=== PATIENT | male | born 1990 | race Caucasian/White ===

== ENCOUNTER 2016-05-01 02:11 | Inpatient (IN) | payer SELFPAY ==
[~2016-05-01] VITALS: Ht 175.3 cm; Wt 93.5 kg
[~2016-05-01 02:11] MED LIST: AUG875 PO
--- NOTE | 2016-05-01 03:34 | ERD ---
ER Documentation Chief Complaint Date/Time DATE: 05/01/16 TIME: 03:32 Chief Complaint mid epigastric ap, n/v started 11pm last night, denies diarrhea HPI 25-year-old male presents here in emergency department complains of epigastric pain and vomiting started last night. Patient described the pain as sharp pain, 6/10 scale, complaining with vomiting. Patient denies any diarrhea or constipation. Patient denies any fever or chills. Patient states the pain is worse after eating. ROS All systems reviewed and are negative except as per history of present illness. Medications Home Meds Active Scripts Ondansetron (Ondansetron Odt) 4 Mg Tab.rapdis, 4 MG PO Q8 Y for NAUSEA AND/OR VOMITING, #30 TAB Prov:ILAN BENNETT SLUBBER TENDER 05/01/16 Hydrocodone/Acetaminophen (Raritan 5-325 Tablet) 1 Each Tablet, 1 TAB PO Q6H Y for PAIN, #20 TAB Prov:ILAN BENNETT NP 05/01/16 Amoxicillin-Clavulanate K* (Augmentin*) 875 Mg Tab, 875 MG PO BID for 10 Days, TAB Prov:MIKY HWANG MD 12/22/14 Allergies Allergies: Coded Allergies: No Known Allergy (Unverified , 12/27/12) PMhx/Soc Medical and Surgical Hx: pt denies Medical Hx, pt denies Surgical Hx History of Surgery: No Anesthesia Reaction: No Hx Neurological Disorder: No Hx Respiratory Disorders: Yes (Pneumonia) Hx Cardiac Disorders: No Hx Psychiatric Problems: No Hx Miscellaneous Medical Probl: No Hx Alcohol Use: No Hx Substance Use: No Hx Tobacco Use: No Smoking Status: Never smoker FmHx Family History: No coronary disease, No diabetes, No other Physical Exam Vitals Vital Signs Date Time Temp Pulse Resp B/P Pulse Ox O2 Delivery O2 Flow Rate FiO2 05/01/16 02:27 98.3 72 20 153/89 99 Physical Exam GENERAL: The patient is well developed and appropriate for usual state of health, in no apparent distress. CHEST: Clear to auscultation bilaterally. There are no rales, wheezes or rhonchi. HEART: Regular rate and rhythm. No murmurs, clicks, rubs or gallops. No S3 or S4. ABDOMEN: Soft, nontender and nondistended. Good bowel sounds. No rebound or guarding. No gross peritonitis. No gross organomegaly or masses. No Nobles sign or McBurney point tenderness. BACK: No midline or flank tenderness. EXTREMITIES: Equal pulses bilaterally. There is no peripheral clubbing, cyanosis or edema. No focal swelling or erythema. Full range of motion. Grossly neurovascularly intact. NEURO: Alert and oriented. Cranial nerves 2-12 intact. Motor strength in all 4 extremities with 5/5 strength. Sensation grossly intact. Normal speech and gait. SKIN: There is no apparent rash or petechia. The skin is warm and dry. HEMATOLOGIC AND LYMPHATIC: There is no evidence of excessive bruising or lymphedema. No gross cervical, axillary, or inguinal lymphadenopathy. Result Diagram: 05/01/16 0428 05/01/168 Results 24 hrs Laboratory Tests Test 05/01/16 04:28 05/01/16 05:52 Alanine Aminotransferase (ALT/SGPT) 34IU/L Albumin 5.3g/dl Albumin/Globulin Ratio 1.08 Alkaline Phosphatase 92IU/L Anion Gap 23 Aspartate Amino Transf (AST/SGOT) 36IU/L Basophils # Pending Basophils % Pending Blood Morphology Comment Blood Urea Nitrogen 10mg/dl Calcium Level 10.1mg/dl Carbon Dioxide Level 26mmol/L Chloride Level 102mmol/L Creatinine 0.61mg/dl Direct Bilirubin 0.00mg/dl Eosinophils # Pending Eosinophils % Pending Globulin 4.90g/dl Glucose Level 89mg/dl Hematocrit 51.0% Hemoglobin 17.4g/dl Indirect Bilirubin 0.6mg/dl Lipase 65U/L Lymphocytes # Pending Lymphocytes % Pending Mean Corpuscular Hemoglobin 28.1pg Mean Corpuscular Hemoglobin Concent 34.1g/dl Mean Corpuscular Volume 82.3fl Mean Platelet Volume 8.2fl Monocytes # Pending Monocytes % Pending Neutrophils # Pending Neutrophils % Pending Nucleated Red Blood Cells # Pending Nucleated Red Blood Cells % Pending Platelet Count 62587^3/UL Potassium Level 5.1mmol/L Red Blood Count 6.2010^6/ul Red Cell Distribution Width 13.5% Sodium Level 146mmol/L Total Bilirubin 0.6mg/dl Total Protein 10.2g/dl White Blood Count 22.410^3/ul Bedside Urine Blood Negative Bedside Urine Glucose (UA) Negative Bedside Urine Ketones (LAB) Negative Bedside Urine Leukocyte Esterase (L Negative Bedside Urine Nitrite (LAB) Negative Bedside Urine Protein (LAB) Negative Bedside Urine pH (LAB) 7.0 Current Medications Medications (Trade) Dose Ordered Sig/Sommer Route PRN Reason Start Time Stop Time Status Last Admin Dose Admin Ondansetron HCl (Zofran Odt) 4 mg ONCE ONCE ODT 05/01/16 03:42 05/01/16 03:43 DC Ondansetron HCl 4 mg 4 mg ONCE STAT IV 05/01/16 04:29 05/01/16 04:30 DC 05/01/16 04:35 Sodium Chloride (NS) 1,000 ml @ 1,000 mls/hr Q1H ONCE IV 05/01/16 04:30 05/01/16 05:29 DC 05/01/16 04:35 Patient was given Zofran here in the emergency department. After treatment, patient was able to tolerate po fluids here in the emergency department without any vomiting. There is no signs and symptoms of dehydration. PROCEDURE: US, abdomen. CLINICAL INDICATION: Abdomen pain. TECHNIQUE: Multiple real time longitudinal and transverse images were acquired of the patient's abdomen, utilizing a curved array transducer. COMPARISON: None available. FINDINGS: The left lobe of the liver is not well seen due to overlying bowel gas. The liver is normal in size and echogenicity without focal mass or intrahepatic biliary dilatation. The spleen is not well seen. There are multiple stones in the distended gallbladder with thickened gallbladder wall. There is no pericholecystic fluid. The extrahepatic bile ducts are not dilated, measuring up to 3.3 mm in maximum diameter. The pancreas is not well seen due to overlying bowel gas. No free fluid in the abdomen. The right kidney measures 10.2 cm in length. The left kidney was not scanned.. The echogenicity of the renal parenchyma is within normal. No renal stones or hydronephrosis or renal mass seen. IMPRESSION: 1. Multiple stones in the distended gallbladder with thickened gallbladder wall. Findings are suggestive of acute cholecystitis. Recommend clinical correlation. If needed, recommend HIDA scan for further evaluation. 2. The pancreas, spleen and left lobe of liver are not well seen due to overlying bowel gas. Recommend CT abdomen for further evaluation. RPTAT: GG .Chente Caballero MD, Date Time Electronically viewed and signed by .Chente Caballero MD, MD on 05/01/2016 05:54 .Y/ CC: ILAN BENNETT NP Procedures/MDM Medical Decision Making: Patient symptoms was likely consistent with acute cholecystitis is seen in the ultrasound. Patient will be admitted to the hospital, possible further evaluation surgical evaluation. Dr. Sandy, attending physician was informed about this patient, patient will be admitted to the hospital. Departure Diagnosis: Primary Impression: Cholecystitis Condition: Fair ILAN BENNETT NP May 01, 2016 03:34
[2016-05-01] MEDS ORDERED: ONDANSETRON (ODT) 4 MG TAB ODT ONE (03:42)
[2016-05-01] MEDS ORDERED: ONDANSETRON 4 MG INJ IV STA (04:29)
[2016-05-01] MEDS ORDERED: SOD CHLORIDE 0.9% 1,000 ML IV ONE ×2 (04:30→06:30)
[2016-05-01 04:38] LABS: EOSINOPHILS % 0.2 % (0.0-7.0); HEMOGLOBIN 17.4 g/dl (14.0-18.0); MONOCYTE # 0.4 10^3/ul (0.3-0.9); RED CELL DISTRIBUTION WIDTH 13.5 % (11.5-14.5)
[2016-05-01 04:46] LABS: ALBUMIN 5.3 g/dl (3.3-4.9)
[2016-05-01 04:47] LABS: POTASSIUM 5.1 mmol/L (3.5-5.1)
[2016-05-01 04:49] LABS: ALBUMIN/GLOBULIN RATIO 1.08; BILIRUBIN,INDIRECT 0.6 mg/dl (0-1.1); BILIRUBIN,TOTAL 0.6 mg/dl (0.2-1.3); CREATININE 0.61 mg/dl (0.61-1.24); TOTAL PROTEIN 10.2 g/dl (6.1-8.1)
[2016-05-01 04:50] LABS: CALCIUM 10.1 mg/dl (8.4-10.2)
[2016-05-01 04:53] LABS: BASOPHIL # 0.1 10^3/ul (0.0-0.1); BASOPHILS % 0.2 % (0.0-2.0); LYMPHOCYTES # 1.4 10^3/ul (0.8-2.9); LYMPHOCYTES % 6.1 % (15.0-51.0); MEAN CORPUSCULAR HEMOGLOBIN 28.1 pg (29.0-33.0); MEAN CORPUSCULAR HGB CONC 34.1 g/dl (32.0-37.0); MEAN CORPUSCULAR VOLUME 82.3 fl (82.0-101.0); MEAN PLATELET VOLUME 8.2 fl (7.4-10.4); MONOCYTES % 1.7 % (0.0-11.0); NEUTROPHIL # 20.6 10^3/ul (1.6-7.5); NEUTROPHILS % 91.8 % (39.0-77.0); PLATELET COUNT 333 10^3/UL (140-440); UNCORRECTED WBC 22.4 10^3/ul (4.8-10.8); WHITE BLOOD COUNT 22.4 10^3/ul (4.8-10.8)
[2016-05-01 05:37] LABS: SUSPECT 1
[2016-05-01 05:38] LABS: CONDITION 1; LH ANALYZER COMMENTS 1
[2016-05-01] MEDS ORDERED: HYDR-906 PO (05:49)
[2016-05-01] MEDS ORDERED: ONDA4TAB14 PO (05:49)
[2016-05-01 05:52] LABS: URINE BLOOD (Dip) POC Negative (NEGATIVE)
--- NOTE | 2016-05-01 05:55 | RADRPT ---
PROCEDURE: US, abdomen. CLINICAL INDICATION: Abdomen pain. TECHNIQUE: Multiple real time longitudinal and transverse images were acquired of the patient's ab domen, utilizing a curved array transducer. COMPARISON: None available. FINDINGS: The left lobe of the liver is not well seen due to overlying bowel gas. The liver is normal in size and echogenicity without focal mass or intrahepatic biliary dilatation. The spleen is not well see n. There are multiple stones in the distended gallbladder with thickened gallbladder wall. There is no pericholecystic fluid. The extrahepatic bile ducts are not dilated, measuring up to 3.3 mm in maxi mum diameter. The pancreas is not well seen due to overlying bowel gas. No free fluid in the abdomen. The right kidney measures 10.2 cm in length. The left kidney was not scanned.. The echogenicity o f the renal parenchyma is within normal. No renal stones or hydronephrosis or renal mass seen. IMPRESSION: 1. Multiple stones in the distended gallbladder with thickened gallbladder wall. Findings are sugg estive of acute cholecystitis. Recommend clinical correlation. If needed, recommend HIDA scan for further evaluation. 2. The pancreas, spleen and left lobe of liver are not well seen due to overlying bowel gas. Recom mend CT abdomen for further evaluation. RPTAT: GG .Chente Caballero MD, MD Date Time Electronically viewed and signed by .Chente Caballero MD, on 05/01/2016 05:54 .Y/
[2016-05-01] MEDS ORDERED: metroNIDAZOLE 500 MG/NS (PMX) 100 ML IVPB ONE (06:30)
[2016-05-01] MEDS ORDERED: CEFTRIAXONE 1 GM/50 ML (PMX) 50 ML IVPB ONE (06:30)
[2016-05-01 06:50] LABS: ADD UMIC NO; URINE BILIRUBIN (Dip) NEGATIVE (NEGATIVE); URINE BLOOD (Dip) NEGATIVE (NEGATIVE); URINE COLOR LT. YELLOW (YELLOW); URINE GLUCOSE (Dip) NEGATIVE (NEGATIVE); URINE KETONES (Dip) NEGATIVE (NEGATIVE); URINE LEUKOCYTE ESTERASE (Dip) NEGATIVE (NEGATIVE); URINE NITRITE (Dip) NEGATIVE (NEGATIVE); URINE TOTAL PROTEIN (Dip) NEGATIVE (NEGATIVE); URINE UROBILINOGEN (Dip) 0.2 E.U./dL (0.1-1.0)
[2016-05-01] MEDS ORDERED: DOCUSATE SODIUM 100 MG CAP PO PRN (07:00)
[2016-05-01] MEDS ORDERED: morphine 2 MG INJ IV PRN (07:00)
[2016-05-01] MEDS ORDERED: ONDANSETRON 4 MG INJ IV PRN ×2 (07:00)
[2016-05-01] MEDS ORDERED: NACL 0.9% 3 ML SYG IV SCH (07:00)
[2016-05-01] MEDS ORDERED: ACETAMINOPHEN 650 MG SUPP PR PRN (07:00)
[2016-05-01] MEDS ORDERED: ACETAMINOPHEN 325 MG TAB PO PRN (07:00)
--- NOTE | 2016-05-01 07:05 | HP ---
Date/Time of Note Date/Time of Note DATE: 05/01/16 TIME: 06:55 Assessment/Plan VTE Prophylaxis VTE Prophylaxis Intervention: SCD's Assessment/Plan Assessment/Plan 25 yo male with no significant past medical history who presents with acute midepigastric abdominal pain. 1. Abdominal pain 2/2 to acute cholecystitis - will admit the patient to med/ surg, consult Dr. George for possible laparoscopic cholecystectomy, continue with IV antibiotics, obtain an MRCP and possible HIDA scan, zofran, IVF, NPO, pain medications 2. Leukocytosis 2/2 to #1 3. GI ppx - pepcid IV 4. DVT ppx - scds answered all of his questions. as per clinical course. this history and physical took greater then 45 minutes to complete HPI/ROS Admit Date/Time Admit Date/Time 05/01/2016, 6:56 am Hx of Present Illness 25 yo male with no significant past medical history who presents with acute midepigastric abdominal pain. He states that the pain started around 12 am today and has been constant, pressure like, non-radiating, no alleviating factors, took advil with no relief, associated with nausea/vomiting x 2 episodes NBNB. He denies any chest pain, shortness of breath, loss of consciousness, headaches, urinary/bowel irregularities, fevers/chills or other constitutional symptoms. This has never happened before. ED course: zofran , morphine, rocephin/flagyl ROS 14 point review of systems completed, please refer to HPI for any positive findings PMH/Family/Social Past Medical History Medical History: no pertinent history Past Surgical History Past Surgical Hx: no surgical history Family History Significant Family History: no pertinent family hx Social History Alcohol Use: none Smoking Status: Never smoker Drug Use: none Exam/Review of Systems Vital Signs Vitals Vital Signs Date Time Temp Pulse Resp B/P Pulse Ox O2 Delivery O2 Flow Rate FiO2 05/01/16 02:27 98.3 72 20 153/89 99 Exam Exam Gen Breanne: moderate distress 2/2 to abdominal pain, AAOx4 HEENT: NC/AT, PERRLA, EOMI, no pharyngeal erythema, no tonsillar exudates, no lymphadenopathy, no JVD, no carotid bruits NECK: supple, no thyromegaly THORAX: symmetrical, no obvious deformities CV: S1S2, RRR, no M/G/R Lungs: CTAB no W/C/R/R Abd: soft, NT/ND, +BS, no rebound, no guarding, neg HSM, negative goldsmith's sign EXT: no edema, no ecchymosis, no clubbing, FROM Neuro: CN II-XII grossly intact, no focal deficits Psych: good mentation, alert and oriented, good mood and affect Skin: C/D/I Labs Result Diagram: 05/01/1642705/01/16427 Medications Medications Current Medications Sodium Chloride 1,000 ml @ 1,000 mls/hr Q1H ONCE IV ; Start 05/01/16 at 06:30; Stop 05/01/16 at 07:29 Ceftriaxone Sodium 50 ml @ 100 mls/hr ONCE ONCE IVPB ; Start 05/01/16 at 06:30 ; Stop 05/01/16 at 06:59 Metronidazole 100 ml @ 100 mls/hr ONCE ONCE IVPB ; Start 05/01/16 at 06:30; Stop 05/01/16 at 07:29 Sodium Chloride (NS) 1,000 ml @ 75 mls/hr [id number] IV ; Start 05/01/16 at 06:45 Ondansetron HCl (Zofran Inj) 4 mg Q6H PRN IV NAUSEA AND/OR VOMITING; Start at 07:00 Acetaminophen (Tylenol Supp) 650 mg Q6H PRN LA PAIN LEVEL 1-3 OR FEVER; Start 05/01/16 at 07:00 Morphine Sulfate (morphine) 2 mg Q4H PRN IV SEVERE PAIN LEVEL 7-10; Start 05/01 at 07:00 Docusate Sodium (Colace) 100 mg Q12H PRN PO CONSTIPATION; Start 05/01/16 at 07: 00 Famotidine 20 mg 20 mg Q12 IV ; Start 05/01/16 at 09:00 Piperacillin Sod/ Tazobactam Sod (Zosyn 3.375gm/ 100 ml (Pmx)) 100 ml @ 200 mls /hr Q6 IVPB ; Start 05/01/16 at 12:00 Procedures Procedures Gallbladder US IMPRESSION: 1. Multiple stones in the distended gallbladder with thickened gallbladder wall. Findings are suggestive of acute cholecystitis. Recommend clinical correlation. If needed, recommend HIDA scan for further evaluation. 2. The pancreas, spleen and left lobe of liver are not well seen due to overlying bowel gas. Recommend CT abdomen for further evaluation. STEFFANY MARVIN MD May 01, 2016 07:04
[2016-05-01 08:37] LABS: CHOL/HDL RATIO 6.6 RATIO; MAGNESIUM 2.2 mg/dl (1.7-2.5)
[2016-05-01] MEDS: SOD CHLORIDE 0.9% 1,000 ML IV SCH ×2 (08:55→14:21)
[2016-05-01 09:04] LABS: THYROID STIMULATING HORMONE 1.2 MIU/L (0.465-4.680)
--- NOTE | 2016-05-01 10:51 | RADRPT ---
PROCEDURE: MRI abdomen without contrast; MRCP CLINICAL INDICATION: Suspected cholecystitis TECHNIQUE: Multiplanar, multisequence imaging of the abdomen was obtained without contrast. Imagi ng includes axial T2, T2 fat sat, and coronal T2-weighted images. In addition, a dedicated high T2 signal intensity MRCP images were obtained in multiple planes with 3-D reconstructions. COMPARISON: none FINDINGS: Multiple layering small gallstones are seen within the gallbladder. There is diffuse gallbladder wa ll thickening with trace pericholecystic fluid and trace pericholecystic fat stranding as well. No filling defects are seen within the biliary ductal system with no evidence of biliary ductal dilatat ion. The pancreatic duct is not dilated. There is uniform signal intensity of the liver without evidence of mass. There is a flow void seen within the portal vein without gross evidence for portal vein thrombus. The kidneys are symmetric without hydronephrosis or mass. The adrenal glands are within normal limi ts. The pancreas is uniform without surrounding inflammation. There is no evidence of bowel obstruction or inflammatory changes of the mesentery. There is a feca l filled colon. The aorta is unremarkable. There are no enlarged lymph nodes. There is no acute o sseous abnormality. IMPRESSION: Cholelithiasis is present with findings consistent with likely acute cholecystitis. No MRI evidence for choledocholithiasis. Fecal filled colon. RPTAT: AA .Amelie Lane MD, MD Date Time Electronically viewed and signed by .Amelie Lane MD, MD on 05/01/2016 10:50 .J/
[2016-05-01] MEDS: PIPER-TAZO 3.375 GM IV (PMX) 100 ML IVPB SCH ×3 (11:41→23:33)
[2016-05-01] MEDS: FAMOTIDINE 20 MG INJ IV SCH ×2 (11:41→20:31)
[2016-05-01 13:00] VITALS: TEMP 98.2
[2016-05-01 13:45] VITALS: BP 134/78; PULSE 66; RESP 16
[2016-05-01 14:00] VITALS: Ht 175.3 cm; Wt 93.5 kg
--- NOTE | 2016-05-01 17:16 | CONS ---
DATE OF ADMISSION: 05/01/2016 DATE OF CONSULTATION: 05/01/2016 HISTORY OF PRESENT ILLNESS: Mr. Brewer is a 25-year-old male who was in usual state of health until yesterday when he developed midepigastric abdominal pain with some nausea, no emesis. He states he has had 1 prior episode which was not as severe. He is unable to eat. He has anorexia as well. PAST MEDICAL HISTORY: Noncontributory. PAST SURGICAL HISTORY: None. MEDICATIONS: None. ALLERGIES: NO KNOWN DRUG ALLERGIES. SOCIAL HISTORY: Drinks occasionally. Denies smoking or drug use. PHYSICAL EXAMINATION: GENERAL: He is a well-developed, well-nourished male in no apparent distress. VITAL SIGNS: He is afebrile. Vital signs stable. CHEST: Clear to auscultation bilaterally. HEART: Regular rhythm. ABDOMEN: Soft, nondistended with some slight epigastric tenderness. LABORATORY DATA: Revealed white count 22, hematocrit of 51 and platelets 333. Sodium 146, potassiu m 5.1, chloride 102, CO2 26, BUN and creatinine 10 and 0.6 and a glucose of 89. An ultrasound reveals multiple stones and distended gallbladder with thickened gallbladder wall, con sistent with acute cholecystitis. He did undergo an abdominal MRI which is cholelithiasis with find ings consistent with likely acute cholecystitis. ASSESSMENT AND PLAN: Mr. Brewer is a 25-year-old male with acute cholecystitis. I discussed jessica wright with a laparoscopic cholecystectomy on this admission. The patient agree. I discussed laparoscopic, possible open cholecystectomy, possible cholangiogram. All benefits, risks, alternati ves were discussed in detail, questions answered. The patient elects to proceed. Dictated By: CATHERINE COOLEY/NTS Conf#: [id number] DID#: [id number]
[2016-05-01 19:23] VITALS: BP 136/77; RESP 18
[2016-05-02] VITALS (27 sets, daily range): BP systolic 124–155; BP diastolic 62–89; PULSE 76–99; RESP 14–25
[2016-05-02] MEDS: SOD CHLORIDE 0.9% 1,000 ML IV SCH (04:08)
[2016-05-02] MEDS: PIPER-TAZO 3.375 GM IV (PMX) 100 ML IVPB SCH ×4 (05:08→23:33)
[2016-05-02 06:19] LABS: BASOPHILS % 0.5 % (0.0-2.0); EOSINOPHILS # 0.1 10^3/ul (0.0-0.5); EOSINOPHILS % 1.6 % (0.0-7.0); HEMATOCRIT 45.1 % (42.0-52.0); HEMOGLOBIN 15.4 g/dl (14.0-18.0); LYMPHOCYTES # 1.8 10^3/ul (0.8-2.9); LYMPHOCYTES % 20.3 % (15.0-51.0); MEAN CORPUSCULAR HEMOGLOBIN 28.6 pg (29.0-33.0); MEAN CORPUSCULAR HGB CONC 34.2 g/dl (32.0-37.0); MEAN CORPUSCULAR VOLUME 83.5 fl (82.0-101.0); MEAN PLATELET VOLUME 8.1 fl (7.4-10.4); MONOCYTE # 0.8 10^3/ul (0.3-0.9); MONOCYTES % 8.8 % (0.0-11.0); NEUTROPHILS % 68.8 % (39.0-77.0); PLATELET COUNT 283 10^3/UL (140-440); RED CELL DISTRIBUTION WIDTH 13.6 % (11.5-14.5); UNCORRECTED WBC 8.8 10^3/ul (4.8-10.8); WHITE BLOOD COUNT 8.8 10^3/ul (4.8-10.8)
[2016-05-02 06:23] LABS: ALBUMIN 4.1 g/dl (3.3-4.9); POTASSIUM 3.9 mmol/L (3.5-5.1)
[2016-05-02 06:25] LABS: BILIRUBIN,INDIRECT 1.3 mg/dl (0-1.1); BILIRUBIN,TOTAL 1.3 mg/dl (0.2-1.3); CREATININE 0.75 mg/dl (0.61-1.24)
[2016-05-02 06:26] LABS: ALBUMIN/GLOBULIN RATIO 1.28; CALCIUM 9.1 mg/dl (8.4-10.2); TOTAL PROTEIN 7.3 g/dl (6.1-8.1)
[2016-05-02 07:04] LABS: CONDITION 1
[2016-05-02] MEDS ORDERED: ONDANSETRON 4 MG INJ ONE (09:19)
[2016-05-02] MEDS ORDERED: DEXAMETHASONE 4 MG/ML 1 ML INJ ONE (09:19)
[2016-05-02] MEDS ORDERED: PROPOFOL 20 ML ONE (09:19)
[2016-05-02] MEDS ORDERED: ROCURONIUM 50 MG INJ ONE (09:19)
[2016-05-02] MEDS ORDERED: SUCCINYLCHOLINE CHLORIDE 100 MG/5 ML SYG IV ONE (09:19)
[2016-05-02] MEDS ORDERED: BUPIVACAINE 0.25%/EPI (SDV) 30 ML INJ ONE (09:25)
[2016-05-02] MEDS ORDERED: LIDOCAINE 1% (MPF) 30 ML INJ ONE (09:25)
[2016-05-02] MEDS ORDERED: MEPERIDINE 25 MG INJ IV PRN (09:30)
[2016-05-02] MEDS ORDERED: ONDANSETRON 4 MG INJ IV PRN ×2 (09:30)
[2016-05-02] MEDS ORDERED: CEFAZOLIN 1 GM INJ ONE (09:30)
[2016-05-02] MEDS ORDERED: FENTAnyl 50 MCG/ML VIAL IV PRN (09:30)
[2016-05-02] MEDS ORDERED: EPHEDrine SULFATE 50 MG/5 ML SYG IV PRN (09:30)
[2016-05-02] MEDS ORDERED: morphine 2 MG INJ IV PRN (09:30)
[2016-05-02] MEDS ORDERED: KETOROLAC 30 MG INJ IV ONE (09:30)
[2016-05-02] MEDS ORDERED: ACETAMINOPHEN 325 MG TAB PO PRN (09:30)
[2016-05-02] MEDS ORDERED: MIDAZOLAM 1 MG/ML 2 ML INJ IV PRN (09:30)
[2016-05-02] MEDS ORDERED: morphine (1 MG/ML) 10ML SYRINGE IV PRN ×3 (09:30)
[2016-05-02] MEDS ORDERED: NEOSTIGMINE 3 MG/3 ML SYRINGE ONE (09:45)
[2016-05-02] MEDS ORDERED: GLYCOPYRROLATE 0.4 MG INJ ONE (09:45)
--- NOTE | 2016-05-02 11:20 | PN ---
Date/Time of Note Date/Time of Note DATE: 05/02/16 TIME: 11:18 Assessment/Plan VTE Prophylaxis VTE Prophylaxis Intervention: other Lines/Catheters IV Catheter Type (from [facility]): Peripheral IV Urinary Cath still in place: No Assessment/Plan Problems: (1) Status post laparoscopic cholecystectomy Status: Acute Comment: He is immediately postop without any apparent complications. He will be observed carefully in the hospital but should be able to be discharged home assuming that everything goes well by 24 hours from now (2) Cholecystitis Status: Acute Comment: Resolved surgically Subjective 24 Hr Interval Summary Free Text/Dictation Michelle 25-year-old gentleman seen in the post anesthesia care unit. He is immediately postop. He reports he is having pain from the surgical site but otherwise doing well. Respiratory: no complaints Cardiovascular: no complaints Exam/Review of Systems Vital Signs Vitals Vital Signs Date Time Temp Pulse Resp B/P Pulse Ox O2 Delivery O2 Flow Rate FiO2 05/02/16 11:07 86 16 132/79 95 Nasal Cannula 05/02/16 10:44 8.0 05/02/16 10:19 98.3 Intake and Output 05/01/16 05/01/16 05/02/16 15:00 23:00 07:00 Intake Total 1390 ml 300 ml 970 ml Balance 1390 ml 300 ml 970 ml Exam Constitutional: alert Neck: non-tender, supple Respiratory: clear to auscultation, normal air movement Cardiovascular: nl pulses, regular rate and rhythm Gastrointestinal: nl liver, spleen, non-tender (Bowel sounds presently quiet immediately postop), soft Results Result Diagram: 05/02/16 0503 05/02/16 0523 Results 24 hrs Laboratory Tests Test 05/02/16 05:03 05/02/16 05:23 Basophils # 0.0 Basophils % 0.5 Blood Morphology Comment Eosinophils # 0.1 Eosinophils % 1.6 Hematocrit 45.1 Hemoglobin 15.4 Lymphocytes # 1.8 Lymphocytes % 20.3 Mean Corpuscular Hemoglobin 28.6 L Mean Corpuscular Hemoglobin Concent 34.2 Mean Corpuscular Volume 83.5 Mean Platelet Volume 8.1 Monocytes # 0.8 Monocytes % 8.8 Neutrophils # 6.0 Neutrophils % 68.8 Nucleated Red Blood Cells # 0.0 Nucleated Red Blood Cells % 0.0 Platelet Count 283 Red Blood Count 5.40 Red Cell Distribution Width 13.6 White Blood Count 8.8 # Alanine Aminotransferase (ALT/SGPT) 31 Albumin 4.1 # Albumin/Globulin Ratio 1.28 Alkaline Phosphatase 69 Anion Gap 17 H Aspartate Amino Transf (AST/SGOT) 16 # Blood Urea Nitrogen 10 Calcium Level 9.1 Carbon Dioxide Level 27 Chloride Level 104 Creatinine 0.75 Direct Bilirubin 0.00 Globulin 3.20 Glucose Level 70 Indirect Bilirubin 1.3 H Potassium Level 3.9 Sodium Level 144 Total Bilirubin 1.3 Total Protein 7.3 # Medications Medications Current Medications Morphine Sulfate 2 mg 2 mg Q4H PRN IV SEVERE PAIN LEVEL 7-10; Start 05/01/16 at 07:00 Piperacillin Sod/ Tazobactam Sod (Zosyn 3.375gm/ 100 ml (Pmx)) 100 ml @ 200 mls /hr Q6 IVPB ; Start 05/02/16 at 12:00 Ondansetron HCl (Zofran Inj) 4 mg Q6H PRN IV NAUSEA AND/OR VOMITING; Start at 09:30 Morphine Sulfate (morphine) 2 mg Q2H PRN IV BREAKTHROUGH PAIN; Start 05/02/16 at 09:30 Acetaminophen (Tylenol Tab) 650 mg Q6H PRN PO PAIN AND OR ELEVATED TEMP; Start 05/02/16 at 09:30 Oxycodone/ Acetaminophen 1 tab 1 tab Q6H PRN PO PAIN LEVEL 6-10; Start at 09:30 Potassium Chloride/Dextrose/ Sod Cl (D5-NS + KCl 20 Meq) 1,000 ml @ 100 mls/hr Q10H IV ; Start 05/02/16 at 09:25 Enoxaparin Sodium (Lovenox) 40 mg DAILY@07 SC ; Start 05/03/16 at 07:00 MICHELINE HARRISON MD May 02, 2016 11:19
[2016-05-02] MEDS: D5-NS + KCL 20 MEQ 1,000 ML IV SCH (12:49)
--- NOTE | 2016-05-02 16:27 | OPR ---
DATE OF OPERATION: 05/02/2016 DATE OF SURGERY: 05/02/2016 PREOPERATIVE DIAGNOSIS: Acute cholecystitis. POSTOPERATIVE DIAGNOSIS: Acute cholecystitis. PROCEDURE: Laparoscopic cholecystectomy. SURGEON: Catherine George MD POSTING MACHINE OPERATOR: None. ANESTHESIA: Endotracheal. ANESTHESIOLOGIST: Dr. Escobar. ESTIMATED BLOOD LOSS: 50 mL. COMPLICATIONS: None. SPECIMENS: Gallbladder. FINDINGS: Gallbladder filled with stones. INDICATIONS: Patient is a 25-year-old male who presented to the ER yesterday with right upper quadr ant epigastric pain. He had signs and symptoms, and his clinical presentation was consistent with a cute cholecystitis. An ultrasound confirmed this. We discussed laparoscopic, possible open, cholec ystectomy, possible cholangiogram. All benefits, risks, alternatives were discussed in detail. Que stions answered. The patient elected to proceed. DESCRIPTION OF PROCEDURE: Patient was brought to the operating room and placed supine on the table. After preop antibiotics and SCDs were placed, the patient was intubated, and the abdomen was clean ed, prepped, and draped in sterile fashion. All incisions were infiltrated with 1% lidocaine with e pinephrine and 0.5% Marcaine prior to incision. An 11-mm incision was made in the umbilicus. Using a 5-mm laparoscope-containing trocar, the abdome n was entered under direct vision and insufflated to 15 mmHg of CO2. The following trocars were the n placed under direct vision: right lower quadrant 5 mm, right upper quadrant 5 mm, and subxiphoid 5 mm. The 5-mm umbilical trocar was exchanged for an 11 mm. The gallbladder was edematous and thic kened. It was grasped at the fundus and retracted over the liver. Adhesions of the omentum were sw ept down bluntly exposing Jojo's pouch. The peritoneum under the Jojo's was scored medially and laterally, and I was able to dissect out and skeletonize the cystic duct and artery. I dissect ed the gallbladder off the cystic plate of the liver. I thus had my critical view of safety where _ ____ duct and artery with no intervening structures. The duct and artery were clipped twice proxima lly and once distally and divided. The gallbladder was then removed from the gallbladder fossa, patricio placido in EndoCatch bag, and removed from the 12-mm trocar site. I irrigated out the right upper quadr ant until effluent was clear. There was some slight oozing from the staple line, which was controll ed with electrocautery. At this point, the gallbladder was placed in EndoCatch bag and removed from the 12-mm trocar site. I , closed the fascia of the 12-mm trocar site with 0 Vicryl using an EndoClose device under direct vision. Abdomen was desufflated, and all trocars removed. Skin incis ions were closed with 4-0 Monocryl, Mastisol , and Steri-Strips. The 2 x 2 gauze and Tegaderm was pl aced over the umbilical incision only. Patient tolerated the procedure well, was extubated in the OR and transferred to the recovery room i n stable condition. Dictated By: CATHERINE COOLEY/CORIN Conf#: [id number] DID#: [id number]
[2016-05-03] MEDS: D5-NS + KCL 20 MEQ 1,000 ML IV SCH ×4 (00:38→15:25)
[2016-05-03 05:32] LABS: ALBUMIN 3.8 g/dl (3.3-4.9)
[2016-05-03] MEDS: PIPER-TAZO 3.375 GM IV (PMX) 100 ML IVPB SCH ×3 (05:32→18:35)
[2016-05-03 05:33] LABS: BASOPHILS % 0.1 % (0.0-2.0); EOSINOPHILS # 0.1 10^3/ul (0.0-0.5); EOSINOPHILS % 0.7 % (0.0-7.0); HEMATOCRIT 43.2 % (42.0-52.0); HEMOGLOBIN 14.8 g/dl (14.0-18.0); LYMPHOCYTES % 16.5 % (15.0-51.0); MEAN CORPUSCULAR HEMOGLOBIN 28.7 pg (29.0-33.0); MEAN CORPUSCULAR HGB CONC 34.2 g/dl (32.0-37.0); MEAN PLATELET VOLUME 7.9 fl (7.4-10.4); MONOCYTE # 1.2 10^3/ul (0.3-0.9); MONOCYTES % 9.5 % (0.0-11.0); NEUTROPHILS % 73.2 % (39.0-77.0); PLATELET COUNT 309 10^3/UL (140-440); POTASSIUM 3.9 mmol/L (3.5-5.1); RED BLOOD COUNT 5.14 10^6/ul (4.70-6.10); RED CELL DISTRIBUTION WIDTH 13.1 % (11.5-14.5); UNCORRECTED WBC 12.3 10^3/ul (4.8-10.8); WHITE BLOOD COUNT 12.3 10^3/ul (4.8-10.8)
[2016-05-03 05:35] LABS: BILIRUBIN,INDIRECT 1.2 mg/dl (0-1.1); BILIRUBIN,TOTAL 1.2 mg/dl (0.2-1.3); CREATININE 0.71 mg/dl (0.61-1.24)
[2016-05-03 05:36] LABS: ALBUMIN/GLOBULIN RATIO 1.18; CALCIUM 8.9 mg/dl (8.4-10.2); CONDITION 1
[2016-05-03 07:56] VITALS: BP 132/72; RESP 20
[2016-05-03] MEDS: ENOXAPARIN 40 MG/0.4 ML SYG SC SCH (08:18)
[2016-05-03] MEDS: OXYCODONE/ACETAMINOPHEN (5/325) TAB PO PRN ×2 (10:15→16:26)
--- NOTE | 2016-05-03 15:10 | DS ---
Date/Time of Note Date/Time of Note DATE: 05/03/16 TIME: 15:04 Discharge Summary Admission/Discharge Info Admit Date/Time May 01, 2016 at 06:43 Discharge Date/Time Final Diagnosis 1. Cholelithiasis and cholecystitis, s/p cholecystectomy, stable, follow up with surgery Patient Condition: Stable Procedures lap cholecystectomy Hx of Present Illness 25 yo male with no significant past medical history who presents with acute midepigastric abdominal pain. He states that the pain started around 12 am today and has been constant, pressure like, non-radiating, no alleviating factors, took advil with no relief, associated with nausea/vomiting x 2 episodes NBNB. He denies any chest pain, shortness of breath, loss of consciousness, headaches, urinary/bowel irregularities, fevers/chills or other constitutional symptoms. This has never happened before. ED course: zofran , morphine, rocephin/flagyl Hospital Course Abdominal ultrasound revealed gallstones and evidence of cholecystitis. MRCP no CBD stone. Patient had lap cholecystectomy on 05/02/2016 without complications. Patient tolerates diet. He will be discharged and follow up with surgery outpatient. Home Meds Active Scripts Ondansetron (Ondansetron Odt) 4 Mg Tab.rapdis, 4 MG PO Q8 Y for NAUSEA AND/OR VOMITING, #30 TAB Prov:ILAN BENNETT NP 05/01/16 Hydrocodone/Acetaminophen ([place] 5-325 Tablet) 1 Each Tablet, 1 TAB PO Q6H Y for PAIN, #20 TAB Prov:ILAN BENNETT NP 05/01/16 Amoxicillin-Clavulanate K* (Augmentin*) 875 Mg Tab, 875 MG PO BID for 10 Days, TAB Prov:MIKY HWANG MD 12/22/14 Follow-up Plan Dr. George one week Pending Labs Laboratory Tests Test 05/03/16 04:45 Alanine Aminotransferase (ALT/SGPT) 60IU/L (13-69) Albumin 3.8g/dl (3.3-4.9) Albumin/Globulin Ratio 1.18 Alkaline Phosphatase 72IU/L (42-121) Anion Gap 16 (8-16) Aspartate Amino Transf (AST/SGOT) 47IU/L (15-46) Basophils # 0.010^3/ul (0.0-0.1) Basophils % 0.1% (0.0-2.0) Blood Morphology Comment Blood Urea Nitrogen 7mg/dl (7-20) Calcium Level 8.9mg/dl (8.4-10.2) Carbon Dioxide Level 28mmol/L (21-31) Chloride Level 103mmol/L (97-110) Creatinine 0.71mg/dl (0.61-1.24) Direct Bilirubin 0.00mg/dl (0.00-0.20) Eosinophils # 0.110^3/ul (0.0-0.5) Eosinophils % 0.7% (0.0-7.0) Globulin 3.20g/dl (1.3-3.2) Glucose Level 109mg/dl (70-220) Hematocrit 43.2% (42.0-52.0) Hemoglobin 14.8g/dl (14.0-18.0) Indirect Bilirubin 1.2mg/dl (0-1.1) Lymphocytes # 2.010^3/ul (0.8-2.9) Lymphocytes % 16.5% (15.0-51.0) Mean Corpuscular Hemoglobin 28.7pg (29.0-33.0) Mean Corpuscular Hemoglobin Concent 34.2g/dl (32.0-37.0) Mean Corpuscular Volume 84.0fl (82.0-101.0) Mean Platelet Volume 7.9fl (7.4-10.4) Monocytes # 1.210^3/ul (0.3-0.9) Monocytes % 9.5% (0.0-11.0) Neutrophils # 9.010^3/ul (1.6-7.5) Neutrophils % 73.2% (39.0-77.0) Nucleated Red Blood Cells # 0.010^3/ul (0.0-0.0) Nucleated Red Blood Cells % 0.0/100WBC (0.0-0.0) Platelet Count 77871^3/UL (140-440) Potassium Level 3.9mmol/L (3.5-5.1) Red Blood Count 5.1410^6/ul (4.70-6.10) Red Cell Distribution Width 13.1% (11.5-14.5) Sodium Level 143mmol/L (135-144) Total Bilirubin 1.2mg/dl (0.2-1.3) Total Protein 7.0g/dl (6.1-8.1) White Blood Count 12.310^3/ul (4.8-10.8) LO CHÁVEZ MD May 03, 2016 15:10
[2016-05-03 20:08] VITALS: BP 128/65; RESP 18
[2016-05-04] MEDS: D5-NS + KCL 20 MEQ 1,000 ML IV SCH ×2 (00:05→12:04)
[2016-05-04] MEDS: PIPER-TAZO 3.375 GM IV (PMX) 100 ML IVPB SCH ×3 (00:13→12:04)
[2016-05-04 06:18] LABS: ALBUMIN 4.1 g/dl (3.3-4.9); POTASSIUM 3.9 mmol/L (3.5-5.1)
[2016-05-04 06:20] LABS: CREATININE 0.73 mg/dl (0.61-1.24)
[2016-05-04 06:21] LABS: ALBUMIN/GLOBULIN RATIO 1.2; CALCIUM 9.2 mg/dl (8.4-10.2); TOTAL PROTEIN 7.5 g/dl (6.1-8.1)
[2016-05-04 06:36] LABS: BASOPHILS % 0.5 % (0.0-2.0); EOSINOPHILS # 0.2 10^3/ul (0.0-0.5); EOSINOPHILS % 1.7 % (0.0-7.0); HEMATOCRIT 44.7 % (42.0-52.0); HEMOGLOBIN 15.1 g/dl (14.0-18.0); LYMPHOCYTES # 1.7 10^3/ul (0.8-2.9); MEAN CORPUSCULAR HEMOGLOBIN 28.1 pg (29.0-33.0); MEAN CORPUSCULAR HGB CONC 33.7 g/dl (32.0-37.0); MEAN CORPUSCULAR VOLUME 83.3 fl (82.0-101.0); MONOCYTE # 0.8 10^3/ul (0.3-0.9); MONOCYTES % 9.1 % (0.0-11.0); NEUTROPHIL # 6.3 10^3/ul (1.6-7.5); NEUTROPHILS % 69.7 % (39.0-77.0); PLATELET COUNT 295 10^3/UL (140-440); RED BLOOD COUNT 5.36 10^6/ul (4.70-6.10); RED CELL DISTRIBUTION WIDTH 13.5 % (11.5-14.5); UNCORRECTED WBC 9.1 10^3/ul (4.8-10.8); WHITE BLOOD COUNT 9.1 10^3/ul (4.8-10.8)
[2016-05-04 06:53] LABS: CONDITION 1
[2016-05-04 07:54] VITALS: BP 117/67; RESP 18
[2016-05-04] MEDS: ENOXAPARIN 40 MG/0.4 ML SYG SC SCH (08:00)
[2016-05-04] MEDS: OXYCODONE/ACETAMINOPHEN (5/325) TAB PO PRN (09:29)
--- NOTE | 2016-05-04 12:05 | DS ---
Date/Time of Note Date/Time of Note DATE: 05/04/16 TIME: 12:04 Discharge Summary Admission/Discharge Info Admit Date/Time May 01, 2016 at 06:43 Discharge Date/Time Final Diagnosis 1. Cholelithiasis and cholecystitis, s/p cholecystectomy, stable, follow up with surgery Hx of Present Illness 25 yo male with no significant past medical history who presents with acute midepigastric abdominal pain. He states that the pain started around 12 am today and has been constant, pressure like, non-radiating, no alleviating factors, took advil with no relief, associated with nausea/vomiting x 2 episodes NBNB. He denies any chest pain, shortness of breath, loss of consciousness, headaches, urinary/bowel irregularities, fevers/chills or other constitutional symptoms. This has never happened before. ED course: zofran , morphine, rocephin/flagyl Hospital Course Abdominal ultrasound revealed gallstones and evidence of cholecystitis. MRCP no CBD stone. Patient had lap cholecystectomy on 05/02/2016 without complications. Patient tolerates diet. He will be discharged and follow up with surgery outpatient. Home Meds Active Scripts Ondansetron (Ondansetron Odt) 4 Mg Tab.rapdis, 4 MG PO Q8 Y for NAUSEA AND/OR VOMITING, #30 TAB Prov:ILAN BENNETT NP 05/01/16 Hydrocodone/Acetaminophen ([place] 5-325 Tablet) 1 Each Tablet, 1 TAB PO Q6H Y for PAIN, #20 TAB Prov:ILAN BENNETT NP 05/01/16 Amoxicillin-Clavulanate K* (Augmentin*) 875 Mg Tab, 875 MG PO BID for 10 Days, TAB Prov:MIKY HWANG MD 12/22/14 Follow-up Plan Dr. George in one week Pending Labs Laboratory Tests Test 05/04/16 05:10 Alanine Aminotransferase (ALT/SGPT) 67IU/L (13-69) Albumin 4.1g/dl (3.3-4.9) Albumin/Globulin Ratio 1.20 Alkaline Phosphatase 67IU/L (42-121) Anion Gap 18 (8-16) Aspartate Amino Transf (AST/SGOT) 41IU/L (15-46) Basophils # 0.010^3/ul (0.0-0.1) Basophils % 0.5% (0.0-2.0) Blood Morphology Comment Blood Urea Nitrogen 7mg/dl (7-20) Calcium Level 9.2mg/dl (8.4-10.2) Carbon Dioxide Level 27mmol/L (21-31) Chloride Level 103mmol/L (97-110) Creatinine 0.73mg/dl (0.61-1.24) Direct Bilirubin 0.00mg/dl (0.00-0.20) Eosinophils # 0.210^3/ul (0.0-0.5) Eosinophils % 1.7% (0.0-7.0) Globulin 3.40g/dl (1.3-3.2) Glucose Level 83mg/dl (70-220) Hematocrit 44.7% (42.0-52.0) Hemoglobin 15.1g/dl (14.0-18.0) Indirect Bilirubin 1.0mg/dl (0-1.1) Lymphocytes # 1.710^3/ul (0.8-2.9) Lymphocytes % 19.0% (15.0-51.0) Mean Corpuscular Hemoglobin 28.1pg (29.0-33.0) Mean Corpuscular Hemoglobin Concent 33.7g/dl (32.0-37.0) Mean Corpuscular Volume 83.3fl (82.0-101.0) Mean Platelet Volume 8.0fl (7.4-10.4) Monocytes # 0.810^3/ul (0.3-0.9) Monocytes % 9.1% (0.0-11.0) Neutrophils # 6.310^3/ul (1.6-7.5) Neutrophils % 69.7% (39.0-77.0) Nucleated Red Blood Cells # 0.010^3/ul (0.0-0.0) Nucleated Red Blood Cells % 0.0/100WBC (0.0-0.0) Platelet Count 87475^3/UL (140-440) Potassium Level 3.9mmol/L (3.5-5.1) Red Blood Count 5.3610^6/ul (4.70-6.10) Red Cell Distribution Width 13.5% (11.5-14.5) Sodium Level 144mmol/L (135-144) Total Bilirubin 1.0mg/dl (0.2-1.3) Total Protein 7.5g/dl (6.1-8.1) White Blood Count 9.110^3/ul (4.8-10.8) LO CHÁVEZ MD May 04, 2016 12:05
== END 2016-05-04 14:59 | disposition home or self-care (01) | DRG 419 ==
LOC: FTE 02:11 → PP2 06:43
PROVIDERS: ADMIT Student in an Organized Health Care Education/Training Program; ATTEND Student in an Organized Health Care Education/Training Program
PROC: 0FT44ZZ Resection of Gallbladder, Percutaneous Endoscopic Approach (ICD-10-PCS; principal; 2016-05-02 10:00)
DX: K80.12 Calculus of gallbladder with acute and chronic cholecystitis without obstruction (principal)
CPT/HCPCS: 36415; 74181; 76705; 80053; 80061; 81003; 83036; 83690; 83735; 84443; 85025; 87040; 88304; 96361; 96365; 96367; 96375; J0330; J0690; J0696; J1100; J1650; J1885; J2270; J2405; J2543; J2710; J3010; J3480; J7030

== ENCOUNTER 2017-02-07 17:31 | Emergency (ER) | payer MEDICAID, OTHER ==
[~2017-02-07] VITALS: Ht 162.6 cm; Wt 90.0 kg
[~2017-02-07 17:31] MED LIST changes: +HYDR-906 PO; +ONDA4TAB14 PO
[2017-02-07 17:58] VITALS: Ht 162.6 cm; Wt 90.0 kg
--- NOTE | 2017-02-07 21:42 | RADRPT ---
PROCEDURE: Chest. CLINICAL INDICATION: Cough. TECHNIQUE: Single frontal view of the chest was obtained. COMPARISON: 12/22/2014. FINDINGS: The cardiac silhouette is within normal limits. The aortic arch is unremarkable. There is no focal consolidation, vascular congestion or pleural effusion. There is no pneumothorax. IMPRESSION: No evidence for active cardiopulmonary disease. .Derik Edwards MD, MD Date Time Electronically viewed and signed by .Derik Edwards MD, on 02/07/2017 21:42 .T/
[2017-02-07] MEDS ORDERED: PROM6.25 PO (21:51)
--- NOTE | 2017-02-07 21:54 | ERD ---
ER Documentation Chief Complaint Chief Complaint FEVER COUGH X2 DAYS HPI This is a 26-year-old male that presents to the ER with fever and cough that started on Tuesday. Patient states that he feels slightly short of breath whenever he is coughing. Cough is dry and constant. He denies any chest pain. Patient is worried that he has pneumonia, because he had pneumonia in the past. ROS 12 point review of systems was done, all negative except per HPI. Medications Home Meds Active Scripts Promethazine Hcl* (Promethazine Hcl* Syrup) 6.25 Mg/5 Ml Syrup, 10 ML PO Q6H Y for COUGH for 3 Days, ML Prov:SCOTT SAWYER 02/07/17 Ondansetron (Ondansetron Odt) 4 Mg Tab.rapdis, 4 MG PO Q8 Y for NAUSEA AND/OR VOMITING, #30 TAB Prov:ILAN BENNETT REFRACTORY REPAIRER 05/01/16 Hydrocodone/Acetaminophen ([place] 5-325 Tablet) 1 Each Tablet, 1 TAB PO Q6H Y for PAIN, #20 TAB Prov:ILAN BENNETT REFRACTORY REPAIRER 05/01/16 Amoxicillin-Clavulanate K* (Augmentin*) 875 Mg Tab, 875 MG PO BID for 10 Days, TAB Prov:MIKY HWANG MD 12/22/14 Allergies Allergies: Coded Allergies: No Known Allergy (Unverified , 02/07/17) PMhx/Soc History of Surgery: Yes (gallbladder) Anesthesia Reaction: No Hx Neurological Disorder: No Hx Respiratory Disorders: No Hx Cardiac Disorders: No Hx Psychiatric Problems: No Hx Miscellaneous Medical Probl: No Hx Alcohol Use: No Hx Substance Use: No Hx Tobacco Use: No Smoking Status: Never smoker Physical Exam Vitals Vital Signs Date Time Temp Pulse Resp B/P Pulse Ox O2 Delivery O2 Flow Rate FiO2 02/07/17 17:58 99.0 96 20 153/86 98 Physical Exam Const: [] Head: Atraumatic Eyes: Normal Conjunctiva ENT: Normal External Ears, Nose and Mouth. Neck: Full range of motion..~ No meningismus. Resp: Clear to auscultation bilaterally Cardio: Regular rate and rhythm, no murmurs Abd: Soft, non tender, non distended. Normal bowel sounds Skin: No petechiae or rashes Back: No midline or flank tenderness Ext: No cyanosis, or edema Neur: Awake and alert Psych: Normal Mood and Affect Results 24 hrs [place] [id number] Radiology Main Line: [phone] DIAGNOSTIC IMAGING REPORT Patient: SAFIA FLEMING : 1990 Age: 26 Sex: M MR #: [id number] DOS: 02/07/17 0000 Ordering MD: SCOTT SAWYER PA-C Location: [facility] Room/Bed: PROCEDURE: Chest. CLINICAL INDICATION: Cough. TECHNIQUE: Single frontal view of the chest was obtained. COMPARISON: 12/22/2014. FINDINGS: The cardiac silhouette is within normal limits. The aortic arch is unremarkable. There is no focal consolidation, vascular congestion or pleural effusion. There is no pneumothorax. IMPRESSION: No evidence for active cardiopulmonary disease. .Derik Edwards MD, MD Date Time Electronically viewed and signed by .Derik Edwards MD, MD on 02/07/2017 21:42 .T/ CC: SCOTT SAWYER Procedures/MDM Differential diagnosis includes but is not limited to; Viral URI, allergic rhinitis, bronchitis, pertussis,pneumonia. This is likely viral in etiology. Clinical suspicion for pneumonia is low as patient appears well, is not hypoxic or in any respiratory distress. Additionally, patients physical examination is benign. Plan was discussed with patient they understand and agree. Patient needs to follow up with PCP in 1-2 days or return to ER sooner if symptoms worsen. Departure Diagnosis: Primary Impression: Upper respiratory infection Condition: Stable Patient Instructions: Preventing Common Respiratory Infections Additional Instructions: Call your primary care doctor TOMORROW for an appointment during the next 1-2 days.See the doctor sooner or return here if your condition worsens before your appointment time. SCOTT SAWYER Feb 07, 2017 21:54
--- NOTE | 2017-02-07 21:54 | ERD ---
ER Documentation Chief Complaint Chief Complaint FEVER COUGH X2 DAYS HPI This is a 26-year-old male that presents to the ER with fever and cough that started on Tuesday. Patient states that he feels slightly short of breath whenever he is coughing. Cough is dry and constant. He denies any chest pain. Patient is worried that he has pneumonia, because he had pneumonia in the past. ROS 12 point review of systems was done, all negative except per HPI. Medications Home Meds Active Scripts Promethazine Hcl* (Promethazine Hcl* Syrup) 6.25 Mg/5 Ml Syrup, 10 ML PO Q6H Y for COUGH for 3 Days, ML Prov:SCOTT SAWYER 02/07/17 Ondansetron (Ondansetron Odt) 4 Mg Tab.rapdis, 4 MG PO Q8 Y for NAUSEA AND/OR VOMITING, #30 TAB Prov:ILAN BENNETT TRANSITIONAL NURSE 05/01/16 Hydrocodone/Acetaminophen ([place] 5-325 Tablet) 1 Each Tablet, 1 TAB PO Q6H Y for PAIN, #20 TAB Prov:ILAN BENNETT TRANSITIONAL NURSE 05/01/16 Amoxicillin-Clavulanate K* (Augmentin*) 875 Mg Tab, 875 MG PO BID for 10 Days, TAB Prov:MIKY HWANG MD 12/22/14 Allergies Allergies: Coded Allergies: No Known Allergy (Unverified , 02/07/17) PMhx/Soc History of Surgery: Yes (gallbladder) Anesthesia Reaction: No Hx Neurological Disorder: No Hx Respiratory Disorders: No Hx Cardiac Disorders: No Hx Psychiatric Problems: No Hx Miscellaneous Medical Probl: No Hx Alcohol Use: No Hx Substance Use: No Hx Tobacco Use: No Smoking Status: Never smoker Physical Exam Vitals Vital Signs Date Time Temp Pulse Resp B/P Pulse Ox O2 Delivery O2 Flow Rate FiO2 02/07/17 17:58 99.0 96 20 153/86 98 Physical Exam Const: [] Head: Atraumatic Eyes: Normal Conjunctiva ENT: Normal External Ears, Nose and Mouth. Neck: Full range of motion..~ No meningismus. Resp: Clear to auscultation bilaterally Cardio: Regular rate and rhythm, no murmurs Abd: Soft, non tender, non distended. Normal bowel sounds Skin: No petechiae or rashes Back: No midline or flank tenderness Ext: No cyanosis, or edema Neur: Awake and alert Psych: Normal Mood and Affect Results 24 hrs [place] [id number] Radiology Main Line: [phone] DIAGNOSTIC IMAGING REPORT Patient: SAFIA FLEMING : 1990 Age: 26 Sex: M MR #: [id number] DOS: 02/07/17 0000 Ordering MD: SCOTT SAWYER PA-C Location: [facility] Room/Bed: PROCEDURE: Chest. CLINICAL INDICATION: Cough. TECHNIQUE: Single frontal view of the chest was obtained. COMPARISON: 12/22/2014. FINDINGS: The cardiac silhouette is within normal limits. The aortic arch is unremarkable. There is no focal consolidation, vascular congestion or pleural effusion. There is no pneumothorax. IMPRESSION: No evidence for active cardiopulmonary disease. .Derik Edwards MD, MD Date Time Electronically viewed and signed by .Derik Edwards MD, MD on 02/07/2017 21:42 .T/ CC: SCOTT SAWYER Procedures/MDM Differential diagnosis includes but is not limited to; Viral URI, allergic rhinitis, bronchitis, pertussis,pneumonia. This is likely viral in etiology. Clinical suspicion for pneumonia is low as patient appears well, is not hypoxic or in any respiratory distress. Additionally, patients physical examination is benign. Plan was discussed with patient they understand and agree. Patient needs to follow up with PCP in 1-2 days or return to ER sooner if symptoms worsen. Departure Diagnosis: Primary Impression: Upper respiratory infection Condition: Stable Patient Instructions: Preventing Common Respiratory Infections Additional Instructions: Call your primary care doctor TOMORROW for an appointment during the next 1-2 days.See the doctor sooner or return here if your condition worsens before your appointment time. SCOTT SAWYER Feb 07, 2017 21:54
--- NOTE | 2017-02-07 21:54 | ERD ---
ER Documentation Chief Complaint Chief Complaint FEVER COUGH X2 DAYS HPI This is a 26-year-old male that presents to the ER with fever and cough that started on Tuesday. Patient states that he feels slightly short of breath whenever he is coughing. Cough is dry and constant. He denies any chest pain. Patient is worried that he has pneumonia, because he had pneumonia in the past. ROS 12 point review of systems was done, all negative except per HPI. Medications Home Meds Active Scripts Promethazine Hcl* (Promethazine Hcl* Syrup) 6.25 Mg/5 Ml Syrup, 10 ML PO Q6H Y for COUGH for 3 Days, ML Prov:SCOTT SAWYER 02/07/17 Ondansetron (Ondansetron Odt) 4 Mg Tab.rapdis, 4 MG PO Q8 Y for NAUSEA AND/OR VOMITING, #30 TAB Prov:ILAN BENNETT INTERNET MARKETING DIRECTOR 05/01/16 Hydrocodone/Acetaminophen ([place] 5-325 Tablet) 1 Each Tablet, 1 TAB PO Q6H Y for PAIN, #20 TAB Prov:ILAN BENNETT INTERNET MARKETING DIRECTOR 05/01/16 Amoxicillin-Clavulanate K* (Augmentin*) 875 Mg Tab, 875 MG PO BID for 10 Days, TAB Prov:MIKY HWANG MD 12/22/14 Allergies Allergies: Coded Allergies: No Known Allergy (Unverified , 02/07/17) PMhx/Soc History of Surgery: Yes (gallbladder) Anesthesia Reaction: No Hx Neurological Disorder: No Hx Respiratory Disorders: No Hx Cardiac Disorders: No Hx Psychiatric Problems: No Hx Miscellaneous Medical Probl: No Hx Alcohol Use: No Hx Substance Use: No Hx Tobacco Use: No Smoking Status: Never smoker Physical Exam Vitals Vital Signs Date Time Temp Pulse Resp B/P Pulse Ox O2 Delivery O2 Flow Rate FiO2 02/07/17 17:58 99.0 96 20 153/86 98 Physical Exam Const: [] Head: Atraumatic Eyes: Normal Conjunctiva ENT: Normal External Ears, Nose and Mouth. Neck: Full range of motion..~ No meningismus. Resp: Clear to auscultation bilaterally Cardio: Regular rate and rhythm, no murmurs Abd: Soft, non tender, non distended. Normal bowel sounds Skin: No petechiae or rashes Back: No midline or flank tenderness Ext: No cyanosis, or edema Neur: Awake and alert Psych: Normal Mood and Affect Results 24 hrs [place] [id number] Radiology Main Line: [phone] DIAGNOSTIC IMAGING REPORT Patient: SAFIA FLEMING : 1990 Age: 26 Sex: M MR #: [id number] DOS: 02/07/17 0000 Ordering MD: SCOTT SAWYER PA-C Location: [facility] Room/Bed: PROCEDURE: Chest. CLINICAL INDICATION: Cough. TECHNIQUE: Single frontal view of the chest was obtained. COMPARISON: 12/22/2014. FINDINGS: The cardiac silhouette is within normal limits. The aortic arch is unremarkable. There is no focal consolidation, vascular congestion or pleural effusion. There is no pneumothorax. IMPRESSION: No evidence for active cardiopulmonary disease. .Derik Edwards MD, MD Date Time Electronically viewed and signed by .Derik Edwards MD, MD on 02/07/2017 21:42 .T/ CC: SCOTT SAWYER Procedures/MDM Differential diagnosis includes but is not limited to; Viral URI, allergic rhinitis, bronchitis, pertussis,pneumonia. This is likely viral in etiology. Clinical suspicion for pneumonia is low as patient appears well, is not hypoxic or in any respiratory distress. Additionally, patients physical examination is benign. Plan was discussed with patient they understand and agree. Patient needs to follow up with PCP in 1-2 days or return to ER sooner if symptoms worsen. Departure Diagnosis: Primary Impression: Upper respiratory infection Condition: Stable Patient Instructions: Preventing Common Respiratory Infections Additional Instructions: Call your primary care doctor TOMORROW for an appointment during the next 1-2 days.See the doctor sooner or return here if your condition worsens before your appointment time. SCOTT SAWYER Feb 07, 2017 21:54
== END 2017-02-07 22:01 | disposition home or self-care (01) ==
LOC: FTE 17:31
DX: J06.9 Acute upper respiratory infection, unspecified (principal)
CPT/HCPCS: 71010; Z7502

== ENCOUNTER 2017-04-09 20:54 | Emergency (ER) | END 2017-04-10 01:21 | disposition home or self-care (01) ==

== ENCOUNTER 2017-04-15 09:58 | Emergency (ER) | END 2017-04-15 12:35 | disposition home or self-care (01) ==

== ENCOUNTER 2017-05-16 17:49 | Emergency (ER) | END 2017-05-16 18:58 | disposition home or self-care (01) ==